=== PATIENT | male | born 1965 | race Two or more races ===

== ENCOUNTER 2021-12-07 16:11 | Outpatient (REF) | payer OTHER, SELFPAY ==
--- NOTE | ~2021-12-07 | MR_ITS ---
MR CERVICAL SPINE WITHOUT IV CONTRAST CLINICAL INFORMATION: Myelopathy. COMPARISON: None available. TECHNIQUE: Incomplete MRI of the cervical spine. The patient could not tolerate axial imaging. Repeat study with sedation as clinically indicated. FINDINGS: Incomplete MRI of the cervical spine. The patient could not tolerate axial imaging. Repeat study with sedation as clinically indicated. Neural foramen are not diagnostically assessed on this exam. Cervical alignment is maintained. There is a partially imaged leftward convex scoliotic curvature of the thoracic spine. Vertebral body heights are maintained. There is no bone marrow edema. There are no acute fractures. The craniocervical junction is unremarkable. Disc volumes are preserved. Increased T2 signal within the C6-C7 disc. Nondiagnostic assessment for cord signal abnormality given the lack of axial imaging. Bone marrow signal is homogenous and normal. MR/MR cervical spine wo con IMPRESSION: - Incomplete MRI of the cervical spine. The patient could not tolerate axial imaging. REPEAT STUDY WITH SEDATION RECOMMENDED CLINICALLY INDICATED. - On the limited sagittal series, at C3-C4, a central disc protrusion and ligamentum flavum thickening result in suspected severe central canal stenosis and mass effect on the cord, not well assessed given the lack of axial imaging. At C4-C5, a shallow central disc protrusion and ligamentum flavum thickening likely results in moderate central canal stenosis and flattening of the cord. Nondiagnostic assessment for cord signal changes given the lack of axial imaging. Neural foramen are not diagnostically assessed given the lack of axial imaging.
== END 2021-12-07 16:12 | disposition home or self-care (01) ==
LOC: HO.MRI 16:11
PROVIDERS: Visit Provider Orthopaedic Surgery
DX: G95.9 Disease of spinal cord, unspecified (principal)
CPT/HCPCS: 72141

== ENCOUNTER 2023-05-22 12:35 | Outpatient (REF) | payer OTHER, SELFPAY | END 2023-05-22 12:36 | disposition home or self-care (01) | LOC: HO.SH 12:35 | PROVIDERS: PCP Nurse Practitioner Family; Visit Provider Nurse Practitioner Family | DX: Z01.118 Encounter for examination of ears and hearing with other abnormal findings (principal); H90.3 Sensorineural hearing loss, bilateral | CPT/HCPCS: 92557; 92567 ==